=== PATIENT | female | born 1940 | race Caucasian/White ===

== ENCOUNTER → 2019-08-17 10:31 | Outpatient (BNVA) | payer MEDICARE, OTHER, SELFPAY | PROVIDERS: Visit Provider Family Medicine | DX: E78.2 Mixed hyperlipidemia (principal) | CPT/HCPCS: 80061 ==

== ENCOUNTER → 2019-11-21 14:17 | Outpatient (BNVA) | payer MEDICARE, OTHER, SELFPAY | PROVIDERS: Visit Provider Family Medicine | DX: G47.00 Insomnia, unspecified (principal); M19.90 Unspecified osteoarthritis, unspecified site; N39.0 Urinary tract infection, site not specified; E78.2 Mixed hyperlipidemia; R35.0 Frequency of micturition; R31.9 Hematuria, unspecified | CPT/HCPCS: 80053; 80061; 81003; 85025 ==

== ENCOUNTER → 2020-03-26 09:32 | Outpatient (BNVA) | payer MEDICARE, OTHER, SELFPAY | PROVIDERS: Visit Provider Family Medicine | DX: I10 Essential (primary) hypertension (principal); E78.2 Mixed hyperlipidemia | CPT/HCPCS: 80053; 80061; 85025 ==

== ENCOUNTER → 2020-10-10 14:28 | Outpatient (BNVA) | payer MEDICARE, OTHER, SELFPAY | PROVIDERS: Visit Provider Family Medicine | DX: M19.90 Unspecified osteoarthritis, unspecified site (principal); G47.00 Insomnia, unspecified; E78.2 Mixed hyperlipidemia; I10 Essential (primary) hypertension | CPT/HCPCS: 80053; 80061; 84443; 85025 ==

== ENCOUNTER → 2021-04-02 10:01 | Outpatient (BNVA) | payer MEDICARE, OTHER, SELFPAY | PROVIDERS: Visit Provider Family Medicine | DX: E55.9 Vitamin D deficiency, unspecified (principal); E78.2 Mixed hyperlipidemia; G47.00 Insomnia, unspecified; I10 Essential (primary) hypertension; Z23 Encounter for immunization; Z12.39 Encounter for other screening for malignant neoplasm of breast; L57.0 Actinic keratosis; M19.90 Unspecified osteoarthritis, unspecified site | CPT/HCPCS: 80053; 80061; 82306; 84443; 85025 ==

== ENCOUNTER → 2021-06-18 10:59 | Outpatient (BNVA) | payer MEDICARE, OTHER, SELFPAY | PROVIDERS: Visit Provider Nurse Practitioner Family | DX: R05.9 Cough, unspecified (principal); I70.0 Atherosclerosis of aorta; M48.54XA Collapsed vertebra, not elsewhere classified, thoracic region, initial encounter for fracture; X58.XXXA Exposure to other specified factors, initial encounter | CPT/HCPCS: 71046; 87635 ==

== ENCOUNTER 2021-07-31 13:04 | Emergency (ER) | payer MEDICARE, OTHER, SELFPAY ==
[2021-07-31 13:17] VITALS: BP 139/76; PULSE 97; RESP 18; TEMP 37.7; O2SAT 95; BMI 27.4
[2021-07-31 13:21] VITALS: BP 136/81; PULSE 100; RESP 16; O2SAT 94
--- NOTE | 2021-07-31 13:32 | ED_ITS ---
HPI - Fall General: Chief Complaint: Fall Stated Complaint: FALL YESTERDAY/ HIP AND ANKLE PAIN Time Seen by Provider: 07/31/21 13:12 History of Present Illness: Patient is a 80-year-old to the ED via EMS after having a fall. Patient states injury occurred yesterday around 1 PM. She was walking down her smith when her knee gave out causing her to fall. Patient was able and scoot herself to the living room to call her son for help. Her main complaint is right ankle, knee and hip pain after fall. She also is having some left knee pain as well. Denies any loss of consciousness, headache or neck pain. Patient is not currently on a blood thinner. Her right knee pain is with bothering her the most. Associated symptoms-after fall: Denies abdominal pain, chest pain, headache(s), hematuria or neck pain Review of Systems Const: Denies: fever(s), chills or fatigue Eyes: Denies: change in vision or eye discomfort ENMT: Denies: throat pain, odynophagia, nasal discharge or nasal congestion Card: Denies: chest pain, palpitations, edema, swelling of feet/ankles, dyspnea on exertion or orthopnea Resp: Denies: dyspnea, productive cough or non-productive cough GI: Denies: abdominal pain, nausea, vomiting, diarrhea, constipation or hematochezia : Denies: flank pain, dysuria or hematuria Musc: Reports: extremity pain (Right ankle, knee and hip. Left knee pain); Denies: neck pain, back pain or extremity swelling Skin/Breast: Denies: rash or new lesions Neuro: Denies: headache(s), numbness in extremities or weakness in extremities PFSH ED PFSH: Medical History ASVD (arteriosclerotic vascular disease) Constipation DJD (degenerative joint disease) Hyperlipidemia Hyperlipidemia Hypertension Neuropathy Scoliosis Vitamin D deficiency Surgical History Hx of appendectomy Hx of hernia repair Hx of hysterectomy Hx of kyphoplasty (~01/2018) Hx of repair of rotator cuff bilateral Family History Family/Other Parkinsons disease Social History Smoking and tobacco status: never smoked Second hand smoke exposure: No Alcohol intake: never Lives independently: Yes Household members: none Marital status: / Current occupational status: retired History of recent travel: No Current gender identity: Female Physical Exam Const: COMMON NORMALS: no acute distress, patient oriented x3 and alert GENERAL APPEARANCE: cooperative and comfortable HENMT: COMMON NORMALS: normocephalic HEAD & SCALP: normocephalic MOUTH: Normal oral and palatal mucosa present THROAT: posterior oropharynx normal and uvula midline Eye: COMMON NORMALS: Equal, round and reactive pupils present GENERAL EYE: appearance normal, both eyes and all related structures PUPIL: Yes Equal, round and reactive pupils present Neck/C-Spine: COMMON NORMALS: supple GENERAL: Yes normal visual inspection Resp: COMMON NORMALS: normal respiratory effort, No retractions, No use of accessory muscles and clear to auscultation bilaterally AUSCULTATION: clear to auscultation bilaterally Cardio: COMMON NORMALS: regular rate, regular rhythm, S1 normal heart sound present, S2 normal heart sound present, No gallops present (Cardio), No clicks present (Cardio), No murmurs present (Cardio) and Peripheral pulses 2+ throughout RATE: regular rate RHYTHM: regular rhythm HEART SOUNDS: S1 normal heart sound present and S2 normal heart sound present PERIPHERAL PULSES: Peripheral pulses 2+ throughout GI: COMMON NORMALS: Normal to inspection, nondistended, normoactive bowel sounds present, Soft to palpation, non-tender and no masses PALPATION: Yes Soft to palpation : COMMON NORMALS: Yes no CVA tenderness BLADDER/KIDNEY EXAM: Yes no CVA tenderness Back/Pelvis: COMMON NORMALS: no CVA tenderness Extremity: RIGHT LOWER EXTREMITY: Yes knee joint Right knee: Yes inspection (No visible deformity or ecchymosis. Mild swelling), Yes palpation (Tenderness over lateral aspect of knee.), Yes ROM (Limited due to pain) and Yes neurovascular exam (Intact.) and Yes foot & digits Right ankle: Yes inspection (Swelling noted, no deformity seen.), Yes palpation (Tenderness over lateral malleolus.), Yes ROM (Full range of motion) and Yes neurovascular exam (Neurovascular tact.) Neuro: COMMON NORMALS: patient oriented x3 and moves all extremities SENSORIUM/ORIENTATION: Yes alert Skin: GENERAL SKIN EXAM: dry skin Course Vital Signs: Vital signs: Vital Signs Temperature 100 F H 07/31/21 13:17 Pulse Rate 79 07/31/21 15:19 Respiratory Rate 16 07/31/21 15:19 Blood Pressure 125/79 07/31/21 15:19 Pulse Oximetry 98 07/31/21 15:19 MDM - Fall Medical Decision Making Patient is an 80-year-old female comes to the ED after having a fall at home. Her main complaint is right ankle, right knee, right hip and left knee pain. She says her right knee is bothering her the most. Denies any loss of consciousness, headache or neck pain. Vitals stable. Patient appears in no acute distress or pain is sitting comfortably in exam bed. She has some right knee swelling and tenderness to palpation of the lateral aspect of knee. All x- rays showed no acute fractures or findings. X-ray of right knee did show some severe osteoarthritis. I placed order with case management for patient to be referred to Ortho for further evaluation of osteoarthritis of right knee. Patient discharged home with some meloxicam. She was told to use a walker to help with weightbearing and ambulation. Return to ED precautions given. Patient understood agree with plan. Lab Data Radiology Impressions Ankle X-Ray 07/31/21 13:48 IMPRESSION: Old healed fracture of the fibula. No acute abnormality. Hip/Pelvis X-Ray 07/31/21 13:48 IMPRESSION: No acute fracture identified. Knee X-Ray 07/31/21 13:48 IMPRESSION: Osteoarthritis with no acute abnormality. Discharge Plan Discharge Patient Disposition: Home Clinical Impression: Osteoarthritis of right knee Qualifiers: Osteoarthritis type: primary Qualified Code(s): M17.11 - Unilateral primary osteoarthritis, right knee Fall as cause of accidental injury at home as place of occurrence Qualifiers: Encounter type: initial encounter Qualified Code(s): W19.XXXA - Unspecified fall, initial encounter Condition: Stable Prescriptions: New meloxicam 15 mg tablet 15 mg PO DAILY PRN (Reason: pain) Qty: 20 0RF No Action tramadol-acetaminophen 37.5-325 mg tablet 1 tab PO DAILY PRN (Reason: pain) Qty: 30 0RF promethazine-DM 6.25-15 mg/5 mL syrup 5 ml PO Q6H PRN (Reason: cough) Qty: 200 1RF doxycycline hyclate 100 mg capsule 100 mg PO BID 10 Days Qty: 20 0RF methylprednisolone [Medrol (Mike)] 4 mg tablets,dose pack See Rx Instructions PO PER PKG DIR Qty: 21 0RF Rx Instructions: PO PER PKG DIR albuterol sulfate [ProAir HFA] 90 mcg/actuation HFA aerosol inhaler 2 puff inhalation QID PRN (Reason: shortness of breath or wheezing) Qty: 8.5 3RF budesonide-formoterol [Symbicort] 160-4.5 mcg/actuation HFA aerosol inhaler 2 puff inhalation Q12H Qty: 10.2 3RF cholecalciferol (vitamin D3) 50 mcg (2,000 unit) capsule 50 mcg PO DAILY 0RF tizanidine 4 mg tablet See Rx Instructions .ROUTE .COMPLEX Qty: 30 2RF Dose Instruction: TAKE 1 TABLET BY MOUTH ONCE DAILY AT BEDTIME NEEDED FOR MUSCLE SPASTICITY Rx Instructions: TAKE 1 TABLET BY MOUTH ONCE DAILY AT BEDTIME NEEDED FOR MUSCLE SPASTICITY meloxicam 15 mg tablet See Rx Instructions .ROUTE .COMPLEX Qty: 90 0RF Dose Instruction: Take 1 tablet by mouth once daily Rx Instructions: Take 1 tablet by mouth once daily rosuvastatin 5 mg tablet See Rx Instructions .ROUTE .COMPLEX Qty: 90 3RF Dose Instruction: Take 1 tablet by mouth once daily Rx Instructions: Take 1 tablet by mouth once daily lisinopril-hydrochlorothiazide 10-12.5 mg tablet See Rx Instructions .ROUTE .COMPLEX Qty: 90 1RF Dose Instruction: Take 1 tablet by mouth once daily Rx Instructions: Take 1 tablet by mouth once daily trazodone 100 mg tablet See Rx Instructions .ROUTE .COMPLEX Qty: 30 2RF Dose Instruction: Take 1 tablet by mouth once daily Rx Instructions: Take 1 tablet by mouth once daily Discharge Orders: Discharge ED (Routine); Ordered 07/31/21 Ordered By: Jah Rice Discharge Diet: Regular Discharge Activity: Use walker/crutches as instructed Patient Instructions: Osteoarthritis (DC), Fall Prevention (ED) Activity Restrictions/Additional Instructions: Follow-up with medical provider as directed. Case management should be contacting you in the next several days to set up an appointment with Ortho for further evaluation of right knee pain and osteoarthritis. Take medications as prescribed. Rest ice and elevate right leg. Use walker to help with ambulation. Return to the ER or your medical provider if condition worsens. Please read and understand discharge instructions. Thank you for choosing [facility] for your healthcare needs today. Please realize this is an emergency room and that we are providing you with a medical screening exam and this may not be complete and all inclusive of all the testing and or work up that you may need to determine your ailment or severity of your illness. It is very important that you follow up as instructed or that you return to the Emergency Department should you have concerns or if your condition changes or worsens in any way. Coding Level of Care Code ED [employer] for [employer] Serna Exam Comprehensive
--- NOTE | 2021-07-31 13:48 | XR_ITS ---
WS: [id number] XR knee LT 3V* [id number] REASON FOR EXAM: fall injury with pain FINDINGS: No fracture or focal bone lesion. Moderate osteoarthritis with narrowing of the lateral knee joint space with subchondral sclerosis and marginal osteophytes. Medial knee joint space relatively well-preserved. Patellofemoral joint space moderately narrowed with subchondral sclerosis and marginal osteophytes of the patella. Loose bodies. Progression of osteoarthritis since 03/04/2006. XR/XR knee LT 3V* [id number] IMPRESSION: Osteoarthritis with no acute abnormality.
--- NOTE | 2021-07-31 13:48 | XR_ITS ---
WS: [id number] XR knee RT 3V* [id number] REASON FOR EXAM: fall injury with pain FINDINGS: No fracture or focal bone lesion. Moderately severe changes of osteoarthritis both the medial and lateral knee joint spaces with joint space narrowing, subchondral sclerosis, and marginal osteophytes. Medial shift of the femur. Moderate narrowing of the patellofemoral joint with marginal osteophytes. Loose bodies. Progression of the osteoarthritis compared to 03/04/2006. XR/XR knee RT 3V* [id number] IMPRESSION: Severe osteoarthritis. No acute abnormality.
--- NOTE | 2021-07-31 13:48 | XR_ITS ---
WS: [id number] XR hip RT 2-3V wo/w pel* [id number] REASON FOR EXAM: fall injury with hip pain FINDINGS: Moderate changes of osteoarthritis in the right hip joint with narrowing of the joint space and subch ondral sclerosis and spurring of the acetabulum. There is a circumferential femoral head/neck osteophyte. A fracture line or impaction line is not identified in the subcapital region. Intertrochanteric region appears intact. Superior and inferior pubic rami are unremarkable. XR/XR hip RT 2-3V wo/w pel* [id number] IMPRESSION: No acute fracture identified.
--- NOTE | 2021-07-31 13:48 | XR_ITS ---
WS: [id number] XR ankle RT min 3V* [id number] REASON FOR EXAM: fall injury with ankle pain FINDINGS: Soft tissue swelling around the lateral malleolus. No fracture or focal bone lesion. Old healed fracture of the distal right fibula with fusion to the tibia and marked narrowing of the l ateral ankle joint space. Remainder of the ankle joint space well preserved. XR/XR ankle RT min 3V* [id number] IMPRESSION: Old healed fracture of the fibula. No acute abnormality.
[2021-07-31] MEDS: ibuprofen 800 mg tablet PO (14:13)
[2021-07-31 15:19] VITALS: BP 125/79; PULSE 79; RESP 16; O2SAT 98
--- NOTE | 2021-08-01 10:55 | DCPLANNER ---
Addendum entered by Domitila Kim 09/19/21 08:00: Patient had a follow up appointment scheduled for 08.20.[address] Monique at ortho - patient did attend appointment. Addendum entered by Domitila Kim 08/02/21 04:44: Patient has a follow up appointment scheduled for Friday, August 20, 2021 at 1:[address] Monique at ortho. Clinic will call patient with appointment information. Original Note: analytics manager had message to schedule a follow up appointment for patient with ortho. analytics manager called the ortho clinic, spoke with Bessy, gave clinic patients information. Case manger was told that patients information would be printed and reviewed. Clinic will call patient with appointment information.
== END 2021-07-31 15:39 | disposition home or self-care (01) ==
PROVIDERS: Emergency Provider Physician Assistant
DX: M17.11 Unilateral primary osteoarthritis, right knee (principal); W18.30XA Fall on same level, unspecified, initial encounter; E78.5 Hyperlipidemia, unspecified; I10 Essential (primary) hypertension
CPT/HCPCS: 73502; 73562; 73610; 99283

== ENCOUNTER → 2021-10-17 13:19 | Outpatient (BNVA) | payer MEDICARE, OTHER, SELFPAY | PROVIDERS: Visit Provider Family Medicine | DX: E55.9 Vitamin D deficiency, unspecified (principal); I10 Essential (primary) hypertension; E78.5 Hyperlipidemia, unspecified; G47.00 Insomnia, unspecified; M17.0 Bilateral primary osteoarthritis of knee | CPT/HCPCS: 80053; 80061; 82306 ==

== ENCOUNTER → 2022-04-18 13:54 | Outpatient (BNVA) | payer MEDICARE, OTHER, SELFPAY | PROVIDERS: PCP Family Medicine; Visit Provider Family Medicine | DX: N39.0 Urinary tract infection, site not specified (principal); R31.9 Hematuria, unspecified; G47.00 Insomnia, unspecified; E78.5 Hyperlipidemia, unspecified; I10 Essential (primary) hypertension | CPT/HCPCS: 80053; 80061; 84443 ==

== ENCOUNTER → 2022-10-16 09:18 | Outpatient (BNVA) | payer MEDICARE, OTHER, SELFPAY | PROVIDERS: PCP Family Medicine; Visit Provider Nurse Practitioner Family | DX: R39.9 Unspecified symptoms and signs involving the genitourinary system (principal); I10 Essential (primary) hypertension; E55.9 Vitamin D deficiency, unspecified | CPT/HCPCS: 80053; 80061; 81003; 82306; 84443; 85025 ==

== ENCOUNTER → 2023-04-13 12:24 | Outpatient (BNVA) | payer MEDICARE, OTHER, SELFPAY | PROVIDERS: PCP Family Medicine; Visit Provider Nurse Practitioner Family | DX: E78.2 Mixed hyperlipidemia; G62.9 Polyneuropathy, unspecified; I10 Essential (primary) hypertension; E55.9 Vitamin D deficiency, unspecified; M19.90 Unspecified osteoarthritis, unspecified site; G47.00 Insomnia, unspecified; N39.0 Urinary tract infection, site not specified | CPT/HCPCS: 80053; 80061; 81003; 82306; 82607; 84443; 85025; 87077; 87086; 87184 ==

== ENCOUNTER → 2023-10-12 11:01 | Outpatient (BNVA) | payer MEDICARE, OTHER, SELFPAY | PROVIDERS: PCP Family Medicine; Visit Provider Family Medicine | DX: N39.0 Urinary tract infection, site not specified (principal); E78.2 Mixed hyperlipidemia; G47.00 Insomnia, unspecified; M19.90 Unspecified osteoarthritis, unspecified site; I10 Essential (primary) hypertension; Z78.9 Other specified health status; K21.9 Gastro-esophageal reflux disease without esophagitis; R31.9 Hematuria, unspecified | CPT/HCPCS: 80053; 80061; 81003; 84443; 85025; 87086 ==

== ENCOUNTER → 2023-10-30 09:36 | Outpatient (BNVA) | payer MEDICARE, OTHER, SELFPAY | PROVIDERS: PCP Family Medicine; Visit Provider Family Medicine | DX: N39.0 Urinary tract infection, site not specified (principal); R31.9 Hematuria, unspecified | CPT/HCPCS: 81000; 87086 ==

== ENCOUNTER → 2024-04-01 10:32 | Outpatient (BNVA) | payer MEDICARE, OTHER, SELFPAY | PROVIDERS: PCP Nurse Practitioner Family; Visit Provider Nurse Practitioner Family | DX: E55.9 Vitamin D deficiency, unspecified (principal); I10 Essential (primary) hypertension | CPT/HCPCS: 80053; 80061; 82306; 85025 ==

== ENCOUNTER → 2024-09-22 13:49 | Outpatient (BNVA) | payer MEDICARE, OTHER, SELFPAY | PROVIDERS: PCP Nurse Practitioner Family; Visit Provider Nurse Practitioner Family | DX: M19.90 Unspecified osteoarthritis, unspecified site (principal); I10 Essential (primary) hypertension; E78.2 Mixed hyperlipidemia; G47.00 Insomnia, unspecified; S00.419A Abrasion of unspecified ear, initial encounter; X58.XXXA Exposure to other specified factors, initial encounter | CPT/HCPCS: 80053; 80061; 84443; 85025 ==

== ENCOUNTER → 2025-04-17 14:56 | Outpatient (BNVA) | payer MEDICARE, OTHER, SELFPAY | PROVIDERS: PCP Nurse Practitioner Family; Visit Provider Nurse Practitioner Family | DX: I10 Essential (primary) hypertension (principal) | CPT/HCPCS: 80053; 80061; 84443; 85025 ==